=== PATIENT | female | born 1955 | race African-American/Black ===

== ENCOUNTER 2017-09-12 14:39 | Outpatient (CLI) | payer OTHER ==
--- NOTE | 2017-09-13 13:23 | Mammography Report ---
BILATERAL DIGITAL SCREENING MAMMOGRAM with CAD : 09/12/17 14:39:00 CLINICAL: Routine screening. COMPARISON:02/07/16 FINDINGS: The breasts are heterogeneously dense, which may obscure small masses.Bilateral calcifications with benign morphology. No mass, architectural distortion or suspicious calcifications. IMPRESSION: No mammographic evidence of malignancy. BI-RADS CATEGORY: 2 -- Benign RECOMMENDATION: Routine mammographic screening in one year. COMMENT: Patient follow-up letters are generated by our [employer] application.
== END 2017-09-12 14:40 | disposition home or self-care (01) ==
LOC: MAMMO 14:39
PROVIDERS: ATTEND Family Medicine
DX: Z12.31 Encounter for screening mammogram for malignant neoplasm of breast (principal)
CPT/HCPCS: 77067

== ENCOUNTER 2019-10-19 08:01 | Outpatient (CLI) | payer MEDICARE ==
--- NOTE | 2019-10-19 10:47 | Ultrasound Report ---
BILATERAL DIGITAL DIAGNOSTIC MAMMOGRAM WITH CAD -- 10/19/2019 BILATERAL LIMITED BREAST ULTRASOUND INDICATION: Patient presents for evaluation of an area of palpable concern in the left breast. TECHNIQUE: Digital bilateral mammographic imaging was performed. Spot compression views were obtaine d. Limited ultrasound was performed. This examination was interpreted with the benefit of Computer- ded Detection (CAD) analysis. COMPARISON: Prior mammograms 09/12/2017 and 02/07/2016 FINDINGS: Breast Density: The breasts are heterogeneously dense, which may obscure small masses. MAMMOGRAPHIC FINDINGS: Underlying the marker denoting site of palpable concern in the upper inner kala drant of the left breast, anterior to middle depth, there is a lobulated mass with partially circumsc ribed and partially obscured margins measuring up to approximately 3.9 x 3.3 x 2.6 cm. There is an 8 mm asymmetric density seen in the slightly inferior right breast, middle to posterior d epth, best seen on MLO view and likely in the central to lateral breast on the CC view. There are stable calcifications with scattered distribution seen throughout both breasts. ULTRASOUND FINDINGS: Targeted ultrasound evaluation was performed of the area of interest. Left breast: Corresponding with the area of palpable concern in the left breast 11:00 position locate d 7 cm from the nipple, there is a predominantly solid complex cystic and solid lesion measuring up t o 2.4 x 2.6 x 2.5 cm. The margins are partially circumscribed but partially indistinct. Internal vasc ularity is demonstrated within the solid component. Right breast: Targeted ultrasound of the inferior right breast reveals a benign simple cyst in the ri ght breast 8:00 position located 2 cm from the nipple measuring up to 4 mm, and an oval circumscribed hypoechoic mass versus complicated cyst in the right breast 9:00 position located 6 cm from the nipp le measuring up to 6 x 4 x 4 mm. This mass is parallel with no internal vascularity and demonstrating increased through transmission. This likely corresponds with the mammographic finding. IMPRESSION: 1. A predominantly solid complex cystic and solid mass accounts for the area of palpable concern in t he left breast. This is suspicious for malignancy, ultrasound-guided biopsy is recommended. 2. A complicated cyst versus oval circumscribed mass in the right breast is considered probably benig n. Recommend right breast ultrasound in 6 months to ensure stability. Follow up recommendation: Biopsy BI-RADS Category 4: Suspicious for Malignancy. A "normal" or negative report should not discourage follow up or biopsy of a clinically significant f inding. A written summary of these findings will be mailed to the patient. The patient will be entered into a mammography reporting system which will generate a reminder letter for the patient's next appointmen t at the appropriate interval. According to the [employer], yearly mammograms are recommended starting at age 40 and continuing as long as a woman is in good health. Breast MRI is recommended for women with an patrick roximately 20-25% or greater lifetime risk of breast cancer, including women with a strong family his tory of breast or ovarian cancer and women who have been treated for Hodgkin's disease. Signer Name: Marine Nielson MD Signed: 10/19/2019 10:43 AM Workstation Name: [id number]
== END 2019-10-19 08:02 | disposition home or self-care (01) ==
LOC: MAMMO 08:01
PROVIDERS: ATTEND Family Medicine
DX: R92.8 Other abnormal and inconclusive findings on diagnostic imaging of breast (principal)
CPT/HCPCS: 77066

== ENCOUNTER 2019-11-18 08:27 | Outpatient (CLI) | payer MEDICARE ==
--- NOTE | 2019-11-18 10:34 | Mammography Report ---
DIGITAL DIAGNOSTIC MAMMOGRAM WITH CAD, 11/18/2019 INDICATION: -Post clip Lt TECHNIQUE: Digital left mammographic imaging was performed. This examination was interpreted with the benefit of Computer-aided Detection analysis. COMPARISON: 10/19/2019 FINDINGS: Breast Density: The breasts are heterogeneously dense, which may obscure small masses. A U-shaped biopsy clip is now identified within the palpable mass at 8:00. IMPRESSION: Concordant clip placement after ultrasound biopsy. Follow up recommendation: No recall. Post biopsy imaging. A "normal" or negative report should not discourage follow up or biopsy of a clinically significant f inding. A written summary of these findings will be mailed to the patient. The patient will be entered into a mammography reporting system which will generate a reminder letter for the patient's next appointmen t at the appropriate interval. According to the [employer], yearly mammograms are recommended starting at age 40 and continuing as long as a woman is in good health. Breast MRI is recommended for women with an patrick roximately 20-25% or greater lifetime risk of breast cancer, including women with a strong family his tory of breast or ovarian cancer and women who have been treated for Hodgkin's disease. Signer Name: Alvaro Núñez MD Signed: 11/18/2019 10:29 AM Workstation Name: [id number]
--- NOTE | 2019-11-18 11:20 | Ultrasound Report ---
ULTRASOUND-GUIDED NEEDLE CORE BIOPSY LEFT BREAST WITH CLIP PLACEMENT CLINICAL: A palpable 2.6 cm left breast mass at 11:00 7 cm from the nipple. FINDINGS: The procedure was explained to the patient and informed consent was obtained. Ultrasound demonstrated the previously identified mass.. I marked the breast with a felt tip marker and a timeout was called. The skin was prepped with Chloro -Prep and anesthetized with 1% lidocaine. Needle core biopsy was performed through small dermatotomy using ultrasound guidance, 2% lidocaine wi th epinephrine for deep anesthesia and a 14-gauge Achieve biopsy device. 5 cores were obtained and pl aced in formalin. A U-shaped clip was deployed within the mass. The patient tolerated the procedure well and there were no apparent complications. Hemostasis was ach ieved with minimal effort and a sterile dressing was applied. A post procedure mammogram demonstrated concordant clip deployment. She left the department in good c ondition and was given instructions for wound care and follow-up. IMPRESSION: Uncomplicated ultrasound guided needle core biopsy with clip placement left breast. Signer Name: Alvaro Núñez MD Signed: 11/18/2019 11:16 AM Workstation Name: [id number]
== END 2019-11-18 08:28 | disposition home or self-care (01) ==
LOC: SPVWC 08:27
PROVIDERS: ATTEND Family Medicine
DX: N63.22 Unspecified lump in the left breast, upper inner quadrant (principal); R92.0 Mammographic microcalcification found on diagnostic imaging of breast; D05.12 Intraductal carcinoma in situ of left breast; Z17.0 Estrogen receptor positive status [ER+]
CPT/HCPCS: 88305; 88341; 88342

== ENCOUNTER 2020-01-12 09:25 | Outpatient (CLI) | payer MEDICARE ==
--- NOTE | 2020-01-12 11:00 | Ultrasound Report ---
EXAMINATION: Left Complete Breast Ultrasound, 01/12/2020 INDICATION: Abnormal mammogram. Left breast mass. COMPARISON: 12/10/2019, 11/18/2019, 10/19/2019 FINDINGS: Complete sonographic evaluation of all 4 quadrants of the left breast was performed. The p revious the biopsied mass in the T10-11:00 position of the left breast is similar in appearance and l arger, measuring 3.8 x 1.9 x 3.3 cm. On the ultrasound from 10/19/2019, this mass measured 2.6 x 2.5 x 2.4 cm. There are multiple hypoechoic solid subcentimeter lesions along the outer left breast from t he 1:00 through the 4:00 positions ranging from 2 to 5 cm from the nipple. That area of the left radha st was not evaluated on the prior ultrasound. No additional significant abnormality. IMPRESSION: Interval enlargement of the known left breast cancer with additional suspicious nodules throughout th e lateral left breast as above that are concerning for additional sites of malignancy. Follow up recommendation: Surgical consult BI-RADS Category 6: Known Biopsy-Proven Malignancy. Signer Name: Tyler Dewitt MD Signed: 01/12/2020 10:55 AM Workstation Name: [id number]
== END 2020-01-12 09:26 | disposition home or self-care (01) ==
LOC: SPVWC 09:25
PROVIDERS: ATTEND Surgery
DX: C50.912 Malignant neoplasm of unspecified site of left female breast (principal); R92.8 Other abnormal and inconclusive findings on diagnostic imaging of breast

== ENCOUNTER 2020-01-13 07:51 | Outpatient (CLI) | payer MEDICARE ==
--- NOTE | 2020-01-13 09:44 | Ultrasound Report ---
EXAMINATION: Ultrasound-guided left breast biopsy, 01/13/2020 CLINICAL INFORMATION: The patient has a new diagnosis of left breast neoplasm at the 11:00 position, manifested by a palpable complex mass. 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 A 2 site biopsy of left lateral breast masses were requested to determine surgical man agement. COMPARISON: Diagnostic mammogram and ultrasound, 10/19/2019. Left breast biopsy, 11/18/2019. Additional lymph node biopsy, 12/10/2019. Left breast ultrasound, 01/12/2020. FINDINGS: Risks, benefits and indications to the procedure were discussed with the patient including but not limited to bleeding, hematoma, infection, or inadequate tissue sampling. The patient agreed t o proceed with both verbal and written consent. A timeout procedure was performed with 2 patient iden tifiers. An electric solderer was present to assist in communication. All of the patient's questions were a nswered. The left breast was cleansed and prepped in the usual sterile fashion. Lidocaine with and without epi nephrine were injected for local anesthesia at the targeted site at the 1:00 position 2 cm from the n ipple. Under direct ultrasound guidance a total of 3 14-gauge core samples were obtained. A marker cl ip was placed. Biopsy device was removed and hemostasis achieved with manual pressure. A sterile dres sing was applied. The patient tolerated the procedure without difficulty. No complications were encountered. The patien t was given postbiopsy instructions. IMPRESSION: 1. Successful ultrasound-guided left breast biopsy at the 1:00 position. Please note that the patient also underwent ultrasound-guided biopsy at the 4:00 position, which is dictated in a separate report . Signer Name: Mar Carrion MD Signed: 01/13/2020 9:40 AM Workstation Name: [id number]
--- NOTE | 2020-01-13 09:48 | Ultrasound Report ---
EXAMINATION: Ultrasound-guided left breast biopsy, additional lesion, 01/13/2020 CLINICAL INFORMATION: The patient has a new diagnosis of left breast neoplasm manifested by a complex mass at the 11:00 position. This is been previously biopsied with results of DCIS and papillary lesi on. Ultrasound-guided biopsy is done today for further evaluation of additional indeterminate masses in the lateral left breast. COMPARISON: Diagnostic mammogram and ultrasound, 10/19/2019. Ultrasound-guided biopsy, 11/18/2019. Lymp h node biopsy, 12/10/2019. Left breast ultrasound, 01/12/2020. PROCEDURE: Risks, benefits and indications to the procedure were discussed with the patient including bleeding, hematoma formation, infection or inadequate tissue sampling. The patient agreed to proceed with both verbal and written consent. A timeout procedure was performed using 2 patient identifiers. An level vial inspector was present to assist with communication. All the patient's questions were answered. The left lateral breast was cleansed and prepped in the usual sterile fashion. Lidocaine with and wit hout epinephrine were used for local anesthesia. Under direct ultrasound guidance, a total of 3 core samples were obtained using a 14-gauge biopsy device of the lesion at the 4:00 position 5 cm from the nipple. A biopsy clip was deployed. Biopsy device was removed and hemostasis achieved with manual pr essure. A sterile dressing was applied. The patient tolerated procedure without difficulty. No complications were encountered. Postbiopsy ins tructions were given to the patient. IMPRESSION: 1. Successful ultrasound-guided left breast biopsy at the 4:00 position. Please note that patient als o underwent biopsy at the 1:00 position in the left breast. This is dictated in a separate report. Signer Name: Mar Carrion MD Signed: 01/13/2020 9:43 AM Workstation Name: [id number]
--- NOTE | 2020-01-13 09:51 | Mammography Report ---
DIGITAL DIAGNOSTIC MAMMOGRAM WITH CAD, 01/13/2020 INDICATION: Postbiopsy mammogram performed to document clip placement after 2 site ultrasound biopsy . TECHNIQUE: Digital left mammographic imaging was performed. This examination was interpreted with the benefit of Computer-aided Detection analysis. COMPARISON: Ultrasound-guided biopsy, 01/13/2020. Diagnostic mammogram, 12/10/2019 and 11/18/2019. Left br east ultrasound, 01/12/2020. FINDINGS: Breast Density: The breasts are heterogeneously dense, which may obscure small masses. Postbiopsy mammogram confirms satisfactory positioning of new biopsy clips at the 1:00 and 4:00 locat ions. IMPRESSION: Follow up recommendation: No recall. Post biopsy imaging. A "normal" or negative report should not discourage follow up or biopsy of a clinically significant f inding. A written summary of these findings will be mailed to the patient. The patient will be entered into a mammography reporting system which will generate a reminder letter for the patient's next appointmen t at the appropriate interval. According to the [employer], yearly mammograms are recommended starting at age 40 and continuing as long as a woman is in good health. Breast MRI is recommended for women with an patrick roximately 20-25% or greater lifetime risk of breast cancer, including women with a strong family his tory of breast or ovarian cancer and women who have been treated for Hodgkin's disease. Signer Name: Mar Carrion MD Signed: 01/13/2020 9:46 AM Workstation Name: [id number]
== END 2020-01-13 07:52 | disposition home or self-care (01) ==
LOC: SPVWC 07:51
PROVIDERS: ATTEND Surgery
DX: N63.23 Unspecified lump in the left breast, lower outer quadrant (principal); N63.21 Unspecified lump in the left breast, upper outer quadrant; R92.8 Other abnormal and inconclusive findings on diagnostic imaging of breast
CPT/HCPCS: 88305

== ENCOUNTER 2020-02-05 06:06 | Observation (INO) | payer MEDICARE ==
--- NOTE | 2020-02-03 10:02 | Anesthesia Consultation ---
Anesthesia Consult and Med Hx Date of service: 02/05/20 - Airway Anesthetic Teeth Evaluation: Partials (upper and lower) ROM Head & Neck: Adequate Mental/Hyoid Distance: Inadequate Mallampati Class: Class III Intubation Access Assessment: Possibly Difficult (small mouth opening) - Pulmonary Exam CTA: Yes - Cardiac Exam Cardiac Exam: RRR - Pre-Operative Health Status ASA Pre-Surgery Classification: ASA2 Proposed Anesthetic Plan: General Nerve Block: PEC - Pulmonary Hx Smoking: No Hx Respiratory Symptoms: No - Cardiovascular System Hx Hypertension: Yes Hx Heart Attack/AMI: No Hx Percutaneous Transluminal Coronary Angioplasty (PTCA): No - Central Nervous System CVA: No - Gastrointestinal Hx Gastroesophageal Reflux Disease: Yes (mild) - Endocrine Hx Renal Disease: No Hx Liver Disease: No Hx Non-Insulin Dependent Diabetes: Yes Hx Thyroid Disease: No - Other Systems Hx Obesity: No - Additional Comments Anesthesia Medical History Comments: No hx anesthetic complications.
[2020-02-03 10:22] LABS: Basophils # (Auto) 0.1 K/mm3 (0.0-0.1); Basophils % (Auto) 0.8 % (0.0-1.8); Eosinophils # (Auto) 0.1 K/mm3 (0.0-0.4); Eosinophils % (Auto) 1.7 % (0.0-4.3); Hematocrit 40.5 % (30.3-42.9); Hemoglobin 13.5 gm/dl (10.1-14.3); Lymphocytes # (Auto) 2.7 K/mm3 (1.2-5.4); Lymphocytes % (Auto) 36.3 % (13.4-35.0); Mean Corpuscular HGB Conc 33 % (30-34); Mean Corpuscular Volume 91 fl (79-97); Monocytes # (Auto) 0.6 K/mm3 (0.0-0.8); Monocytes % (Auto) 8.2 % (0.0-7.3); Platelet Count 343 K/mm3 (140-440); Red Blood Count 4.45 M/mm3 (3.65-5.03); Red Cell Distribution Width 14.3 % (13.2-15.2)
[2020-02-03 10:35] LABS: Blood Urea Nitrogen 19 mg/dL (7-17); Calcium 8.8 mg/dL (8.4-10.2); Hemolysis Index 2
[2020-02-03 10:36] LABS: BUN/Creatinine Ratio 32
[~2020-02-05 06:06] MED LIST: CELECOXIB 200 MG CAP PO NR; GABAPENTIN 300 MG CAP PO NR; LACTATED RINGERS 1,000 ML IV SCH; MAGNESIUM OXIDE 400 MG TAB PO SCH; MIDAZOLAM 2 MG/2 ML INJ IV NR; ceFAZolin/Water 2 GM/20 ML 2 GM/20 ML SYRINGE IV NR; fentaNYL 100 MCG/2 ML INJ IV PRN
[2020-02-05] MEDS ORDERED: dexAMETHasone 4 MG/ML VIAL ONE (07:13)
[2020-02-05] MEDS ORDERED: LIDOCAINE (1%) 10 MG/1 ML VIAL 20 ML MDV ONE (07:13)
[2020-02-05] MEDS ORDERED: BUPIVACAINE-EPINEPHRINE/PF 0.5%-1:200,000 (30 ML) VIAL INFILTRATI ONE (07:13)
[2020-02-05] MEDS ORDERED: HYDROmorphone 1 MG/1 ML INJ ONE (07:22)
[2020-02-05] MEDS ORDERED: propofoL 200 MG/20 ML VIAL IV ONE (07:22)
[2020-02-05] MEDS ORDERED: LIDOCAINE MPF (2%) 20 MG/1 ML VIAL 5 ML ONE (07:22)
[2020-02-05] MEDS ORDERED: ROCURONIUM 50 MG/5 ML INJ IV ONE (07:22)
[2020-02-05] MEDS ORDERED: SODIUM CHLORIDE P/F VIAL 10 ML 10 ML ONE (07:23)
[2020-02-05] MEDS ORDERED: METHYLENE BLUE 50 MG/10 ML AMP ONE (07:23)
[2020-02-05] MEDS ORDERED: fentaNYL 100 MCG/2 ML INJ IV PRN (07:28)
--- NOTE | 2020-02-05 07:28 | Anesthesia Day of Surgery ---
Anesthesia Day of Surgery - Day of Surgery Patient Examined: Yes Patient H&P Reviewed: Yes Patient is NPO: Yes
[2020-02-05] MEDS ORDERED: PHENYLEPHRINE/NS 1,000 MCG/10 ML SYRINGE (OR USE) IV ONE (10:40)
--- NOTE | 2020-02-05 10:45 | XRay Report ---
Left breast surgical specimen INDICATION: BREAST CANCER. COMPARISON: Diagnostic mammogram from 10/19/2019 IMPRESSION: Left breast lobulated mass contains 3 biopsy clips. Margins appear to be appropriate. F indings were discussed with Dr. Smith this morning. Signer Name: Delfin Meier MD Signed: 02/05/2020 10:41 AM Workstation Name: [id number]
[2020-02-05] MEDS ORDERED: LACTATED RINGERS 1,000 ML ONE (11:09)
[2020-02-05] MEDS ORDERED: GLYCOPYRROLATE 0.4 MG/2 ML INJ ONE (11:09)
[2020-02-05] MEDS ORDERED: NEOSTIGMINE 10MG/10 ML INJ MDV ONE (11:09)
[2020-02-05] MEDS ORDERED: ONDANSETRON 4 MG/2 ML INJ ONE (11:09)
[2020-02-05] MEDS ORDERED: METHYLENE BLUE 50 MG/10 ML AMP IV ONE (11:14)
[2020-02-05] MEDS ORDERED: SODIUM CHLORIDE 0.9% P/F 10 ML VIAL INFILTRATI ONE (11:15)
[2020-02-05] MEDS ORDERED: WATER FOR IRRIG STERILE 1,500 ML BOTTLE IR ONE (11:29)
[2020-02-05] MEDS ORDERED: METOCLOPRAMIDE 10 MG TAB PO PRN (11:47)
[2020-02-05] MEDS ORDERED: diphenhydrAMINE 25 MG CAP PO PRN (11:47)
[2020-02-05] MEDS ORDERED: ACETAMINOPHEN 325 MG TAB PO PRN (11:47)
[2020-02-05] MEDS ORDERED: ONDANSETRON 4 MG/2 ML INJ IV PRN (11:47)
--- NOTE | 2020-02-05 11:47 | Short Stay Summary ---
Short Stay Documentation Date of service: 02/05/20 - History H&P: obtained from office - Allergies and Medications Current Medications: Allergies No Known Allergies Allergy (Verified 01/28/20 12:54) Home Medications Medication Instructions Recorded Confirmed Last Taken Type AtorvaSTATin [Lipitor] 20 mg PO QHS 01/28/20 02/05/20 02/04/20 20:00 History Losartan [Cozaar] 25 mg PO QDAY 01/28/20 02/05/20 02/05/20 05:00 History metFORMIN [Glucophage] 500 mg PO QDAY 01/28/20 02/05/20 02/04/20 09:00 History Active Medications Celecoxib (Celebrex) 200 mg PO PREOP NR Stop: 02/05/20 22:00 Last Admin: 02/05/20 06:50 Dose: 200 mg Documented by: Fentanyl (Sublimaze) 100 mcg IV ONCE PRN PRN Reason: sedation for nerve block Stop: 02/05/20 23:00 Last Admin: 02/05/20 07:15 Dose: 50 mcg Documented by: Fentanyl (Sublimaze) 50 mcg IV Q5MIN PRN PRN Reason: Pain , Severe (7-10) Stop: 02/05/20 22:00 Gabapentin (Gabapentin) 300 mg PO PREOP NR Stop: 02/05/20 22:00 Last Admin: 02/05/20 06:50 Dose: 300 mg Documented by: Cefazolin Sodium (Ancef/Sterile Water 2 Gm/20 Ml) 2 gm in 20 mls @ 80 mls/hr IV PREOP NR; Protocol Stop: 02/05/20 23:59 Lactated Ringer's (Lactated Ringers) 1,000 mls @ 100 mls/hr IV DIRECT TRISTEN Stop: 02/05/20 23:59 Last Admin: 02/05/20 06:50 Dose: 100 mls/hr Documented by: Magnesium Oxide (Mag-Ox) 400 mg PO PREOP TRISTEN Stop: 02/05/20 20:00 Last Admin: 02/05/20 06:50 Dose: 400 mg Documented by: Midazolam HCl (Versed) 2 mg IV PREOP NR Stop: 02/05/20 22:00 Last Admin: 02/05/20 07:15 Dose: 1 mg Documented by: - Brief post op/procedure progress note Date of procedure: 02/05/20 Pre-op diagnosis: Left breast cancer upper inner quadrant Post-op diagnosis: same Procedure: Left total mastectomy with SLNB Anesthesia: GETA Findings: 4 SLNs neg for malignancy; radiograph specimen with 3 clips present Surgeon: KEYSHAWN KAM Estimated blood loss: 50-100ml Pathology: list (left total mastectomy; x4 SLNs) Specimen disposition: to lab Condition: stable - Disposition Condition at discharge: Good Disposition: DC/TX-02 SHRT-TRM GEN HOSP IP Short Stay Discharge Plan Activity: other (no heavy lifting) Diet: regular Wound: keep clean and dry Follow up with: BRIJESH DELVALLE MD [Primary Care Provider] - 7 Days KEYSHAWN KAM MD [Staff Physician] - 7 Days
[2020-02-05] MEDS ORDERED: MORPHINE 2 MG/1 ML INJ IV PRN (11:49)
[2020-02-05] MEDS ORDERED: DEXTROSE 50% IN WATER (25GM) 50 ML SYRINGE IV PRN (11:50)
[2020-02-05] MEDS ORDERED: LACTATED RINGERS 1,000 ML IV SCH (12:00)
--- NOTE | 2020-02-05 12:43 | Post Anesthesia Evaluation ---
- Post Anesthesia Evaluation Patient Participated: Yes Airway Patent: Yes Stable Respiratory Function: Yes Nausea/Vomiting: No Temp > 96.8F: Yes Pain Manageable: Yes Adequeate Hydration: Yes Anesthesia Complications: No
--- NOTE | 2020-02-05 13:30 | Operative Report ---
Operative Report Operative Report: Operative Report: Date of Service: February 05, 2020 Preoperative diagnosis: Left breast cancer of the upper inner quadrant and left breast atypia Postoperative diagnosis: Same Procedure: Left total mastectomy with sentinel lymph node biopsy Surgeon: Anne-Marie Smith M.D. Area Captain: SHARDA Garcia; Sonia Ortiz MD Anesthesia: Gen. 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 Recommendations were to proceed with a left total mastectomy given known left breast carcinoma of upper inner quadrant and addtional pathology findings of atypia and papilloma. She understands to role of possible adjuvant XRT pending final pathology and medical oncology will obtain Oncotype DX for evaluation for adjuvant chemotherapy if indicated. Will proceed with delay plastic surgery. She wished to proceed with the above procedure. Procedure in detail: The patient was taken to the operating room and was placed supine. Gen. anesthesia was administered. The left nipple was injected with radioisotope and 1 cc of methylene blue. Left breast and axilla was prepped and draped in the normal sterile operative fashion. Timeout was performed. Typical mastectomy incision markings were made with left mastectomy incision encompassing known cancer around the 10:00 position. Ultrasound was used as well for incision markings. Attention was taken towards the left breast. A gamma probe was inserted into the axilla to identify the sentinel lymph node location with uptake noted. Skin markings were made to include the area of known cancer-palpable mass at the 10:00 position. A skin incision was made with a 10 blade knife and dissection taken down to the subcutaneous tissues. First began raising of the superior flap to the level of the clavicle superiorly and posteriorly to the pectoralis muscle. Followed by raising of the medial flap to the level of the sternum and posteriorly to the pectoralis muscle. Followed by raising of the lateral flap to the level of the latissimus dorsi muscle and taken down posteriorly. The gamma probe was inserted into the axilla, the axillary fascia was opened and 4 SLNS were identified that were dissected free and sent to pathology. All SLNs sent to pathology with findings negative for malignancy on frozen section. Then proceeded with raising of the inferior flap to the level of the inframammary fold taken posterior to the pectoralis muscle. The mastectomy/breast was removed from the pectoralis muscle without incident. The specimen was appropriately marked and sent to radiology with findings of 3 breast clips present and sent to pathology. Hemostasis was obtained. The chest wall cavity was irrigated. A 19 Scottish DREW drain was placed. The subcutaneous tissues were approximated and close using interrupted 3-0 Vicryl and the skin closed using 4-0 running Monocryl followed by dermabond. She tolerated surgery very well and was awaken from anesthesia without any comp lications and transported to PACU in good condition.
[2020-02-05] MEDS: INSULIN LISPRO 100 UNIT/ML SUB-Q SCH ×3 (15:22→22:43)
[2020-02-05] MEDS: oxyCODONE /ACETAMINOPHEN 5-325MG TAB PO PRN ×2 (18:10→22:29)
[2020-02-05] MEDS: DOCUSATE SODIUM 100 MG CAP PO SCH (22:29)
[2020-02-06] MEDS: oxyCODONE /ACETAMINOPHEN 5-325MG TAB PO PRN (05:21)
[2020-02-06] MEDS: INSULIN LISPRO 100 UNIT/ML SUB-Q SCH (05:23)
--- NOTE | 2020-02-06 07:47 | Progress Note ---
Assessment and Plan This is a 64 year old lady with Stage 0 left breast cancer upper inner quadrant and left breast atypia, POD#1 left total mastectomy with SLNB. 1. Pain in good control, no acute events overnight. 2. Left chest incision healing well, no hematoma; DREW drain output appropriate. 3. DREW drain education. 4. OOB to hallway. 5. D/C planning for today. Subjective Date of service: 02/06/20 Principal diagnosis: Left breast cancer Interval history: POD#1 left total mastectomy with SLNB Objective - Constitutional Vitals: Vital Signs - 12hr 02/05/20 02/05/20 02/06/20 20:00 23:49 05:20 Temperature 98.4 F 98.2 F 98.2 F Pulse Rate 79 69 73 Respiratory 18 18 18 Rate Blood Pressure 110/70 92/52 135/83 O2 Sat by Pulse 91 95 96 Oximetry General appearance: Present: no acute distress - EENT Eyes: PERRL, EOM intact ENT: hearing intact, clear oral mucosa, dentition normal Ears: bilateral: normal - Neck Neck: supple, normal ROM - Respiratory Respiratory effort: normal - Breasts Breasts: other (left chest incision healing well; incision c/d/i; no hematoma; skin well perfused; DREW drain with appropriate output) - Cardiovascular Rhythm: regular Extremities: no ischemia, pulses intact, pulses symmetrical, No edema, normal temperature, normal color, Full ROM - Gastrointestinal General gastrointestinal: Present: soft, non-tender, non-distended Rectal Exam: deferred - Genitourinary Female genitourinary: deferred - Integumentary Integumentary: clear, warm, dry - Musculoskeletal Musculoskeletal: strength equal bilaterally - Neurologic Neurologic: CNII-XII intact, moves all extremities - Psychiatric Psychiatric: appropriate mood/affect, intact judgment & insight, memory intact, cooperative - Labs CBC & Chem 7: 02/03/20 09:47 02/03/20 09:48 Labs: Abnormal lab results 02/05/20 02/05/20 02/05/20 Range/Units 12:12 17:29 22:43 POC Glucose 154 H 133 H 137 H (70-105) Medications & Allergies - Medications Allergies/Adverse Reactions: Allergies No Known Allergies Allergy (Verified 01/28/20 12:54) Home Medications: Home Medications Medication Instructions Recorded Confirmed Last Taken Type AtorvaSTATin [Lipitor] 20 mg PO QHS 01/28/20 02/05/20 02/04/20 20:00 History Losartan [Cozaar] 25 mg PO QDAY 01/28/20 02/05/20 02/05/20 05:00 History metFORMIN [Glucophage] 500 mg PO QDAY 01/28/20 02/05/20 02/04/20 09:00 History Active Medications: Generic Name Dose Route Start Last Admin Trade Name Freq PRN Reason Stop Dose Admin Acetaminophen 650 mg 02/05/20 11:47 Tylenol PO Q6H PRN Pain MILD(1-3)/Fever >100.5/PATTERSON Dextrose 50 ml 02/05/20 11:50 D50w (25gm) Syringe IV Q30MIN PRN Hypoglycemia Protocol Diphenhydramine HCl 25 mg 02/05/20 11:47 Benadryl PO Q8H PRN Itching Docusate Sodium 100 mg 02/05/20 22:00 02/05/20 22:29 Colace PO 100 mg BID TRISTEN Administration Lactated Ringer's 1,000 mls @ 125 mls/hr 02/05/20 12:00 Lactated Ringers IV DIRECT TRISTEN Insulin Human Lispro 0 unit 02/05/20 12:00 02/06/20 05:23 Humalog SUB-Q Not Given Q6HR [facility] Protocol Metoclopramide HCl 10 mg 02/05/20 11:47 Reglan PO Q6H PRN Nausea And Vomiting Morphine Sulfate 2 mg 02/05/20 11:49 Morphine IV Q4H PRN Pain, Moderate (4-6) Ondansetron HCl 4 mg 02/05/20 11:47 Zofran IV Q8H PRN N/V unrelieved by Reglan Oxycodone/Acetaminophen 1 tab 02/05/20 11:47 02/06/20 05:21 Percocet 5/325 PO 1 tab Q6H PRN Administration Pain, Moderate (4-6) Sodium Chloride 10 ml 02/05/20 11:47 Sodium Chloride Flush Syringe 10 Ml IV PRN PRN LINE FLUSH
[2020-02-06] MEDS: DOCUSATE SODIUM 100 MG CAP PO SCH (09:42)
[2020-02-06 13:20] VITALS: BP 110/62
== END 2020-02-06 13:30 | disposition home or self-care (01) ==
LOC: OR 06:06 → OB 11:47
PROVIDERS: ADMIT Surgery; ATTEND Surgery
DX: C50.212 Malignant neoplasm of upper-inner quadrant of left female breast (principal); I10 Essential (primary) hypertension; E11.9 Type 2 diabetes mellitus without complications; K21.9 Gastro-esophageal reflux disease without esophagitis; Z79.84 Long term (current) use of oral hypoglycemic drugs
CPT/HCPCS: 19303; 36415; 38525; 38792; 64450; 76098; 78800; 80048; 82962; 85025; 88307; 88331; 88333; 88342; A9541; G0378; J0690; J1100; J1170; J2250; J2370; J2405; J2704; J2710; J3010; J7120; Q9968; U0003

== ENCOUNTER 2020-04-14 10:34 | Outpatient (CLI) | payer MEDICARE ==
--- NOTE | 2020-04-14 13:48 | Mammography Report ---
DEXA BONE DENSITY SCAN INDICATION: -Aromatase Inhibitor Med, postmenopausal female COMPARISON: None available. LUMBAR SPINE (L1-L4): Bone mineral density (BMD) is 0.853 g/cm2. T-score is -1.8 (standard deviations of Young Adult mean). Z-score is 0.1 (standard deviations of Age Matched mean). LEFT FEMORAL NECK: Bone mineral density (BMD) is 0.581 g/cm2. T-score is -2.4 (standard deviations of Young Adult mean). Z-score is -0.8 (standard deviations of Age Matched mean). IMPRESSION: 1. WHO Classification: Osteopenia. Fracture Risk: Increased. Signer Name: Joshua Paredes MD Signed: 04/14/2020 1:44 PM Workstation Name: [id number]
== END 2020-04-14 10:35 | disposition home or self-care (01) ==
LOC: MAMMO 10:34
PROVIDERS: ATTEND Internal Medicine Hematology & Oncology
DX: C50.912 Malignant neoplasm of unspecified site of left female breast (principal); E11.9 Type 2 diabetes mellitus without complications; I10 Essential (primary) hypertension; Z78.0 Asymptomatic menopausal state
CPT/HCPCS: 77080

== ENCOUNTER 2020-10-20 08:47 | Outpatient (CLI) | payer MEDICARE ==
--- NOTE | 2020-10-20 09:33 | Mammography Report ---
DIGITAL SCREENING MAMMOGRAM WITH CAD, 10/20/2020 CLINICAL INFORMATION / INDICATION: Routine screening mammography. The patient has a personal history of left breast cancer treated with mastectomy. TECHNIQUE: Digital right 2D mammography was obtained in the craniocaudal and mediolateral oblique pr ojections. This examination was interpreted with the benefit of Computer-Aided Detection analysis. COMPARISON: 09/12/2017, 10/19/2019 FINDINGS: Breast Density: The breasts are heterogeneously dense, which may obscure small masses. No dominant mass, suspicious calcifications, or architectural distortion in the right breast. Few coarse right breast calcifications are again noted and have not significantly changed when compar ed to prior mammograms. IMPRESSION: No mammographic evidence of malignancy. Follow up recommendation: Routine yearly BI-RADS Category 2: Benign. A "normal" or negative report should not discourage follow up or biopsy of a clinically significant f inding. A written summary of these findings will be mailed to the patient. The patient will be entered into a mammography reporting system which will generate a reminder letter for the patient's next appointmen t at the appropriate interval. The [employer] recommends yearly mammograms starting at age 40 and continuing as l dionna as a woman is in good health. Breast MRI is recommended for women with an approximate 20-25% or greater lifetime risk of breast cancer, including women with a strong family history of breast or ova kosta cancer or who have been treated for Hodgkin's disease. Signer Name: Mar Carrion MD Signed: 10/20/2020 9:29 AM Workstation Name: [id number]
== END 2020-10-20 08:48 | disposition home or self-care (01) ==
LOC: SPVWC 08:47
PROVIDERS: ATTEND Surgery
DX: R92.1 Mammographic calcification found on diagnostic imaging of breast (principal)

== ENCOUNTER 2020-12-30 16:26 | Observation (INO) | payer MEDICARE ==
[2020-12-30 17:33] LABS: Basophils % (Auto) 0.6 % (0.0-1.8); Eosinophils # (Auto) 0.1 K/mm3 (0.0-0.4); Eosinophils % (Auto) 1.5 % (0.0-4.3); Hematocrit 21.9 % (30.3-42.9); Lymphocytes # (Auto) 2.3 K/mm3 (1.2-5.4); Lymphocytes % (Auto) 29.8 % (13.4-35.0); Mean Corpuscular HGB Conc 32 % (30-34); Mean Corpuscular Volume 94 fl (79-97); Monocytes # (Auto) 0.5 K/mm3 (0.0-0.8); Monocytes % (Auto) 6.9 % (0.0-7.3); Platelet Count 477 K/mm3 (140-440); Red Blood Count 2.34 M/mm3 (3.65-5.03); Red Cell Distribution Width 16.7 % (13.2-15.2)
[2020-12-30 17:43] LABS: INR 0.92 (0.87-1.13)
[2020-12-30 17:44] LABS: Partial Thromboplastin Time 27.8 Sec. (24.2-36.6)
[2020-12-30 17:55] LABS: Alanine Aminotransferase 44 units/L (7-56); Albumin 3.7 g/dL (3.9-5); Blood Urea Nitrogen 13 mg/dL (7-17); Calcium 8.7 mg/dL (8.4-10.2); Hemolysis Index 3
[2020-12-30 17:57] LABS: BUN/Creatinine Ratio 26
[2020-12-30] MEDS ORDERED: SODIUM CHLORIDE 0.9% 500 ML 500 ML IV ONE (21:32)
--- NOTE | 2020-12-30 21:42 | Emergency Department Report ---
ED GI Bleed HPI - General Chief complaint: GI Bleed Stated complaint: ABN LABS Time Seen by Provider: 12/30/20 21:29 Source: patient Mode of arrival: Ambulatory Limitations: No Limitations - History of Present Illness Initial comments: Patient is a 65-year-old [place]er female who is being sent in from her primary care clinic for transfusion. Patient had a hemoglobin of 6.0 on labs yesterday. Patient had reported some GI bleeding over the last several days. Patient is a poor historian even with using a via the [employer] translation line. Patient is is stating over and over that she was sent in to be given blood by her doctor. When asking the patient whether she is having shortness of breath chest pain fatigue or syncope the patient only answers that she is here for blood transfusion. The history of GI bleed is given by the note from the primary care physician. Patient is denying any abdominal pain at this time. - Related Data Home Medications Medication Instructions Recorded Confirmed Last Taken AtorvaSTATin [Lipitor] 20 mg PO QHS 01/28/20 02/05/20 02/04/20 20:00 Losartan [Cozaar] 25 mg PO QDAY 01/28/20 02/05/20 02/05/20 05:00 metFORMIN [Glucophage] 500 mg PO QDAY 01/28/20 02/05/20 02/04/20 09:00 Previous Rx's Medication Instructions Recorded Last Taken Type oxyCODONE /ACETAMINOPHEN [Percocet 1 tab PO Q6HR PRN #25 tablet 02/06/20 Unknown Rx 5/325] Allergies Allergy/AdvReac Type Severity Reaction Status Date / Time No Known Allergies Allergy Verified 01/28/20 12:54 ED Review of Systems ROS: Stated complaint: ABN LABS Other details as noted in HPI Comment: All other systems reviewed and negative ED Past Medical Hx - Past Medical History Previous Medical History?: Yes Hx Hypertension: Yes Hx Heart Attack/AMI: No Hx Diabetes: Yes (LAST A1C 7.4; ON PO MED) Hx Liver Disease: No Hx Renal Disease: No Hx HIV: No - Social History Smoking Status: Never Smoker - Medications Home Medications: Home Medications Medication Instructions Recorded Confirmed Last Taken Type AtorvaSTATin [Lipitor] 20 mg PO QHS 01/28/20 02/05/20 02/04/20 20:00 History Losartan [Cozaar] 25 mg PO QDAY 01/28/20 02/05/20 02/05/20 05:00 History metFORMIN [Glucophage] 500 mg PO QDAY 01/28/20 02/05/20 02/04/20 09:00 History oxyCODONE /ACETAMINOPHEN [Percocet 1 tab PO Q6HR PRN #25 tablet 02/06/20 Unknown Rx 5/325] ED Physical Exam - General Limitations: No Limitations General appearance: alert, in no apparent distress - Head Head exam: Present: atraumatic, normocephalic - Eye Eye exam: Present: normal appearance - ENT ENT exam: Present: mucous membranes moist - Neck Neck exam: Present: normal inspection - Respiratory Respiratory exam: Present: normal lung sounds bilaterally. Absent: respiratory distress, wheezes, rales, rhonchi - Cardiovascular Cardiovascular Exam: Present: regular rate, normal rhythm, normal heart sounds. Absent: systolic murmur, diastolic murmur, rubs, gallop - GI/Abdominal GI/Abdominal exam: Present: soft, normal bowel sounds. Absent: distended, tenderness, guarding, rebound - Extremities Exam Extremities exam: Present: normal inspection - Back Exam Back exam: Present: normal inspection - Neurological Exam Neurological exam: Present: alert, oriented X3 - Psychiatric Psychiatric exam: Present: normal affect, normal mood - Skin Skin exam: Present: warm, dry, intact, normal color. Absent: rash ED Course Vital Signs 12/30/20 16:57 Temperature 99.9 F H Pulse Rate 82 Respiratory 18 Rate Blood Pressure 135/71 [Right] O2 Sat by Pulse 99 Oximetry ED Medical Decision Making - Lab Data Result diagrams: 12/30/20 17:09 12/30/20 17:09 Lab Results 12/30/20 12/30/20 12/30/20 Range/Units 17:00 17:09 17:09 WBC 7.8 (4.5-11.0) K/mm3 RBC 2.34 L (3.65-5.03) M/mm3 Hgb 7.0 L (10.1-14.3) gm/dl Hct 21.9 L (30.3-42.9) % MCV 94 (79-97) fl MCH 30 (28-32) pg MCHC 32 (30-34) % RDW 16.7 H (13.2-15.2) % Plt Count 477 H (140-440) K/mm3 Lymph % (Auto) 29.8 (13.4-35.0) % [place] % (Auto) 6.9 (0.0-7.3) % Eos % (Auto) 1.5 (0.0-4.3) % Baso % (Auto) 0.6 (0.0-1.8) % Lymph # (Auto) 2.3 (1.2-5.4) K/mm3 [place] # (Auto) 0.5 (0.0-0.8) K/mm3 Eos # (Auto) 0.1 (0.0-0.4) K/mm3 Baso # (Auto) 0.0 (0.0-0.1) K/mm3 Seg Neutrophils % 61.2 (40.0-70.0) % Seg Neutrophils # 4.7 (1.8-7.7) K/mm3 PT 13.0 (12.2-14.9) Sec. INR 0.92 (0.87-1.13) APTT 27.8 (24.2-36.6) Sec. Sodium (137-145) mmol/L Potassium (3.6-5.0) mmol/L Chloride (98-107) mmol/L Carbon Dioxide (22-30) mmol/L Anion Gap mmol/L BUN (7-17) mg/dL Creatinine (0.6-1.2) mg/dL Estimated GFR ml/min BUN/Creatinine Ratio % Glucose (65-100) mg/dL Calcium (8.4-10.2) mg/dL Total Bilirubin (0.1-1.2) mg/dL AST (5-40) units/L ALT (7-56) units/L Alkaline Phosphatase (35-129) units/L Total Protein (6.3-8.2) g/dL Albumin (3.9-5) g/dL Albumin/Globulin Ratio % Lipase (13-60) units/L Blood Type A POSITIVE Antibody Screen Negative Crossmatch See Detail 12/30/20 Range/Units 17:09 WBC (4.5-11.0) K/mm3 RBC (3.65-5.03) M/mm3 Hgb (10.1-14.3) gm/dl Hct (30.3-42.9) % MCV (79-97) fl MCH (28-32) pg MCHC (30-34) % RDW (13.2-15.2) % Plt Count (140-440) K/mm3 Lymph % (Auto) (13.4-35.0) % [place] % (Auto) (0.0-7.3) % Eos % (Auto) (0.0-4.3) % Baso % (Auto) (0.0-1.8) % Lymph # (Auto) (1.2-5.4) K/mm3 [place] # (Auto) (0.0-0.8) K/mm3 Eos # (Auto) (0.0-0.4) K/mm3 Baso # (Auto) (0.0-0.1) K/mm3 Seg Neutrophils % (40.0-70.0) % Seg Neutrophils # (1.8-7.7) K/mm3 PT (12.2-14.9) Sec. INR (0.87-1.13) APTT (24.2-36.6) Sec. Sodium 139 (137-145) mmol/L Potassium 3.9 (3.6-5.0) mmol/L Chloride 106.2 (98-107) mmol/L Carbon Dioxide 22 (22-30) mmol/L Anion Gap 15 mmol/L BUN 13 (7-17) mg/dL Creatinine 0.5 L (0.6-1.2) mg/dL Estimated GFR > 60 ml/min BUN/Creatinine Ratio 26 % Glucose 113 H (65-100) mg/dL Calcium 8.7 (8.4-10.2) mg/dL Total Bilirubin 0.30 (0.1-1.2) mg/dL AST 25 (5-40) units/L ALT 44 (7-56) units/L Alkaline Phosphatase 92 (35-129) units/L Total Protein 6.9 (6.3-8.2) g/dL Albumin 3.7 L (3.9-5) g/dL Albumin/Globulin Ratio 1.2 % Lipase 56 (13-60) units/L Blood Type Antibody Screen Crossmatch - Medical Decision Making Patient is a 65-year-old [place] female who is a poor historian is presenting with low hemoglobin. Note from her physician states that she has a GI bleed however she is guaiac negative here in the emergency department. Patient is has a low-grade temp at 99.9. States no pain on physical exam palpation of the abdomen but hospitalist have requested CT be done. Patient's MCV was actually normal which goes against a blood loss anemia. Iron studies will be done in place by hospitalist team. Patient be admitted for observation. Critical care attestation.: If time is entered above; I have spent that time in minutes in the direct care of this critically ill patient, excluding procedure time. ED Disposition Clinical Impression: Anemia Disposition: DC09 OP ADMIT IP TO THIS HOSP Is pt being admited?: Yes Does the pt Need Aspirin: No Condition: Stable Time of Disposition: 21:44
--- NOTE | 2020-12-30 21:55 | History and Physical Report ---
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 Patient had a hemoglobin of 6.0 on labs yesterday. Patient had reported some GI bleeding over the last several days. Patient is a poor historian even with using a via the [employer] translation line. Patient is is stating over and over that she was sent in to be given blood by her doctor. When asking the patient whether she is having shortness of breath chest pain fatigue or syncope the patient only answers that she is here for blood transfusion. The history of GI bleed is given by the note from the primary care physician. Patient is denying any abdominal pain at this time. ED work-up WBC 7.8, hemoglobin 7.0 hematocrit 21.9, platelets 477, creatinine 0.5 serum glucose 113 calcium 8.7 albumin 3.7 lipase 56. Patient seen at bedside alert and oriented x3. Patient denies headache and weakness. Patient stated that she had a headache and weakness yesterday but not today. I reviewed the medication record, vital signs, and the history and physical. Patient has known low H&H 7.0 on admission. Per patient record from her primary care physician her h/h head clinic in the office was below 7. We will admit patient on observation and will give 1 unit of packed red blood cells. Possible discharge tomorrow if patient is stable. Past History Past Medical History: diabetes, hypertension, hyperlipidemia Past Surgical History: No surgical history Social history: no significant social history Family history: no significant family history Medications and Allergies Allergies Allergy/AdvReac Type Severity Reaction Status Date / Time No Known Allergies Allergy Verified 01/28/20 12:54 Home Medications Medication Instructions Recorded Confirmed Last Taken Type AtorvaSTATin [Lipitor] 20 mg PO QHS 01/28/20 02/05/20 02/04/20 20:00 History Losartan [Cozaar] 25 mg PO QDAY 01/28/20 02/05/20 02/05/20 05:00 History metFORMIN [Glucophage] 500 mg PO QDAY 01/28/20 02/05/20 02/04/20 09:00 History oxyCODONE /ACETAMINOPHEN [Percocet 1 tab PO Q6HR PRN #25 tablet 02/06/20 Unknown Rx 5/325] Review of Systems Ears, nose, mouth and throat: no epistaxis Breasts: no swelling, no mass Cardiovascular: high blood pressure Respiratory: no congestion, no wheezing Gastrointestinal: no abdominal pain, no melena Rectal: no hemorrhoids Musculoskeletal: muscle weakness Integumentary: no rash, no pruritis, no redness Neurological: weakness, no head injury Hematologic/Lymphatic: no easy bruising, no easy bleeding Allergic/Immunologic: no urticaria Exam - Constitutional Vitals: Temp Pulse Resp BP Pulse Ox 99.9 F H 82 18 135/71 99 12/30/20 16:57 12/30/20 16:57 12/30/20 16:57 12/30/20 16:57 12/30/20 16:57 General appearance: Present: mild distress, well-nourished - EENT Eyes: Present: PERRL ENT: hearing intact, clear oral mucosa - Neck Neck: Present: supple, normal ROM - Respiratory Respiratory effort: normal Respiratory: bilateral: CTA - Cardiovascular Heart Sounds: Present: S1 & S2. Absent: rub, click - Extremities Extremities: pulses symmetrical, No edema Peripheral Pulses: within normal limits - Abdominal General gastrointestinal: Present: soft, non-tender, non-distended, normal bowel sounds Female genitourinary: Present: normal - Integumentary Integumentary: Present: clear, warm, dry - Musculoskeletal Musculoskeletal: gait normal, strength equal bilaterally - Psychiatric Psychiatric: appropriate mood/affect, intact judgment & insight - Neurologic Neurologic: CNII-XII intact, moves all extremities - Allied Health Allied health notes reviewed: nursing Results - Labs CBC & Chem 7: 12/30/20 17:09 12/30/20 17:09 Labs: Abnormal lab results 12/30/20 12/30/20 12/30/20 Range/Units 17:00 17:09 17:09 RBC 2.34 L (3.65-5.03) M/mm3 Hgb 7.0 L (10.1-14.3) gm/dl Hct 21.9 L (30.3-42.9) % RDW 16.7 H (13.2-15.2) % Plt Count 477 H (140-440) K/mm3 Creatinine 0.5 L (0.6-1.2) mg/dL Glucose 113 H (65-100) mg/dL Albumin 3.7 L (3.9-5) g/dL Crossmatch See Detail Assessment and Plan - Patient Problems (1) Anemia Current Visit: No Status: Inactive Plan to address problem: Likely 2/2 to Iron deficiency Patient sent to ED for blood transfusion by primary care physician due low H&H less than 7 On admission H&H -7.0. Guaiac stool negative Transfuse 1 unit packed red blood cells. Check iron, folate and vitamin B-12 levels Start iron and multivitamin supplement (2) Essential (primary) hypertension Current Visit: No Status: Acute Plan to address problem: History of hypertension Monitor blood pressure Resume home losartan. As needed hydralazine (3) Hyperlipidemia Current Visit: No Status: Acute Plan to address problem: Resume home statin (4) Diabetes Current Visit: No Status: Acute Plan to address problem: Monitor blood sugar sliding scale protocol hemoglobin A1c-6.9 Will resume Metformin at discharge (5) DVT prophylaxis Current Visit: No Status: Acute Plan to address problem: SCD will hold off on anticoagulant patient is anemic
[2020-12-30] MEDS ORDERED: SENNOSIDES 8.6 MG TAB PO PRN (22:00)
[2020-12-30] MEDS ORDERED: METOCLOPRAMIDE 10 MG/2 ML INJ IV PRN (22:00)
[2020-12-30] MEDS ORDERED: MAGNESIUM HYDROXIDE (MOM) ORAL LIQD UDC PO PRN (22:00)
[2020-12-30] MEDS ORDERED: ONDANSETRON 4 MG/2 ML INJ IV PRN (22:00)
[2020-12-30] MEDS ORDERED: ALUM-MAG HYDROXIDE-SIMETHICONE 200-200-20MG/5ML ORAL LIQD 30 ML PO PRN (22:00)
[2020-12-30] MEDS ORDERED: ACETAMINOPHEN 325 MG TAB PO PRN (22:00)
[2020-12-30] MEDS ORDERED: FERROUS SULFATE 325 MG TAB PO ONE (22:02)
[2020-12-30] MEDS ORDERED: hydrALAZINE 20 MG/1 ML INJ IV PRN (22:05)
--- NOTE | 2020-12-30 23:51 | Cat Scan Report ---
CT ABDOMEN AND PELVIS WITH IV CONTRAST INDICATION: low HGB, low grade fever. Abdominal pain COMPARISON: None available. TECHNIQUE: Axial CT images were obtained through the abdomen and pelvis after 100 mL IV contrast. All CT scans a t this location are performed using CT dose reduction for ALARA by means of automated exposure contro l. The exam is slightly limited secondary to respiratory motion artifact FINDINGS -- ABDOMEN: Lung Bases: No acute abnormality. Liver: Normal. Gallbladder: Grossly unremarkable but motion artifact limits evaluation. Bile Ducts: Normal. Pancreas: Normal. Spleen: Normal. Adrenals: Normal. Right Kidney and Proximal Ureter: Normal. Left Kidney and Proximal Ureter: Normal. Stomach and Bowel: Normal. Lymph Nodes: No significant adenopathy. Aorta: Scattered atherosclerotic calcification. IVC: Normal. Additional Findings: None. FINDINGS -- PELVIS: Urinary Bladder and Distal Ureters: Normal. Reproductive Organs: No acute abnormality. Appendix: Normal. Bowel: No acute abnormality. Sigmoid diverticulosis but no diverticulitis Free Fluid: None. Lymph Nodes: No significant adenopathy. Additional Findings: None. Skeletal System: No acute abnormality. IMPRESSION: 1. No acute process in the abdomen or pelvis. Colonic diverticulosis. Signer Name: Jaydon Jones MD Signed: 12/30/2020 11:47 PM Workstation Name: [id number]
[2020-12-31] MEDS ORDERED: SODIUM CHLORIDE 0.9% 500 ML 500 ML ONE (00:38)
[2020-12-31] MEDS: INSULIN LISPRO 100 UNIT/ML SUB-Q SCH ×2 (00:51→10:48)
[2020-12-31 01:42] LABS: Iron 30 ug/dL (37-170); Total Iron Binding Capacity 394 mcg/dL (250-450)
[2020-12-31 02:06] LABS: % Iron Saturation 7.46 %
[2020-12-31 06:33] LABS: Basophils # (Auto) 0.1 K/mm3 (0.0-0.1); Eosinophils # (Auto) 0.1 K/mm3 (0.0-0.4); Hematocrit 24.6 % (30.3-42.9); Hemoglobin 8.3 gm/dl (10.1-14.3); Lymphocytes # (Auto) 2.8 K/mm3 (1.2-5.4); Lymphocytes % (Auto) 40.2 % (13.4-35.0); Mean Corpuscular HGB Conc 34 % (30-34); Mean Corpuscular Volume 90 fl (79-97); Monocytes # (Auto) 0.5 K/mm3 (0.0-0.8); Monocytes % (Auto) 7.5 % (0.0-7.3); Platelet Count 388 K/mm3 (140-440); Red Blood Count 2.74 M/mm3 (3.65-5.03); Red Cell Distribution Width 17.8 % (13.2-15.2)
[2020-12-31 07:08] LABS: Alanine Aminotransferase 37 units/L (7-56); Albumin 3.5 g/dL (3.9-5); Blood Urea Nitrogen 9 mg/dL (7-17); Calcium 8.6 mg/dL (8.4-10.2); Hemolysis Index 6
[2020-12-31 07:11] LABS: BUN/Creatinine Ratio 18
[2020-12-31] MEDS ORDERED: LOSARTAN 25 MG TAB PO SCH (10:00)
[2020-12-31] MEDS ORDERED: MULTIVITAMINS ,THERAPEUTIC TAB PO SCH (10:00)
[2020-12-31 12:51] VITALS: BP 108/64
--- NOTE | 2020-12-31 15:06 | Discharge Summary ---
Providers - Providers Date of Admission: 12/30/20 21:45 Date of discharge: 12/31/20 Attending physician: LIZETT MORRIS [facility] Condition: Stable Pertinent studies: CT abdomen pelvis: No acute intra-abdominal pathology Hospital course: Patient is a 65-year-old [place] female who is being sent in from her primary care clinic for blood transfusion. Patient had a hemoglobin of 6.0 on labs and had reported some GI bleeding over the last several days. Patient is a poor historian even with using a via the [employer] translation line. ED work-up WBC 7.8, hemoglobin 7.0 hematocrit 21.9, platelets 477, creatinine 0.5 serum glucose 113 calcium 8.7 albumin 3.7 lipase 56. Patient seen at bedside alert and oriented x3. Patient denies headache, syncope/lightheadedness, chest pain and weakness. Patient was transfused 1 unit of packed RBC. Her repeat hemoglobin was 8.3. Her stool guaiac test was negative. CT abdomen pelvis showed no acute pathology. Her vitamin B12 and folic acid was normal. Patient was instructed to follow-up with her primary care physician for further outpatient work-up for her anemia. Patient verbalized understanding and she was discharged home in stable condition with outpatient follow-up. Disposition: DC TO HOME OR SELFCARE Final Discharge Diagnosis (Prints w/discharge instructions): Normocytic anemia, likely due to GI loss versus iron deficiency. diabetes mellitus type 2, hemoglobin A1c 6.9. Hypertension. Hyperlipidemia Core Measure Documentation - Palliative Care Palliative Care/ Comfort Measures: Not Applicable - Core Measures Any of the following diagnoses?: none Exam - Physical Exam Narrative exam: General appearance: Present: mild distress, well-nourished - EENT Eyes: Present: PERRL ENT: hearing intact, clear oral mucosa - Neck Neck: Present: supple, normal ROM - Respiratory Respiratory effort: normal Respiratory: bilateral: CTA - Cardiovascular Heart Sounds: Present: S1 & S2. Absent: rub, click - Extremities Extremities: pulses symmetrical, No edema Peripheral Pulses: within normal limits - Abdominal General gastrointestinal: Present: soft, non-tender, non-distended, normal bowel sounds Female genitourinary: Present: normal - Integumentary Integumentary: Present: clear, warm, dry - Musculoskeletal Musculoskeletal: gait normal, strength equal bilaterally - Psychiatric Psychiatric: appropriate mood/affect, intact judgment & insight - Neurologic Neurologic: CNII-XII intact, moves all extremities - Allied Health Allied health notes reviewed: nursing - Constitutional Vitals: Temp Pulse Resp BP Pulse Ox 98.5 F 67 20 108/64 97 12/31/20 12:03 12/31/20 12:03 12/31/20 12:03 12/31/20 12:03 12/31/20 12:03 Plan Activity: advance as tolerated Weight Bearing Status: Weight Bear as Tolerated Diet: diabetic Additional Instructions: Repeat CBC in 1 week. Follow-up with PCP for further outpatient care. Follow-up with GI for any possible endoscopy as outpatient in 2 weeks Follow up with: BRANDON SANTIZO MD [Primary Care Provider] - 7 Days VIK BARNES MD [Staff Physician] - 7 Days Forms: Accompanied Note Prescriptions: Ferrous Gluconate [Fergon 325 MG tab] 325 mg PO QDAY #30 tablet
[2020-12-31] MEDS ORDERED: INSULIN LISPRO 100 UNIT/ML SUB-Q SCH (16:30)
== END 2020-12-31 17:35 | disposition home or self-care (01) ==
LOC: ED 16:26 → 3A 21:45
PROVIDERS: ADMIT Internal Medicine Geriatric Medicine; ATTEND Internal Medicine
DX: D64.9 Anemia, unspecified (principal); I10 Essential (primary) hypertension; E11.9 Type 2 diabetes mellitus without complications; E78.2 Mixed hyperlipidemia; R10.9 Unspecified abdominal pain; Z79.84 Long term (current) use of oral hypoglycemic drugs
CPT/HCPCS: 36415; 36430; 74177; 80053; 82607; 82747; 82962; 83036; 83550; 83690; 85025; 85610; 85730; 86850; 86900; 86901; 86920; 99285; A9270; G0378; J7040; P9016; Q9967

== ENCOUNTER 2021-07-14 07:36 | Outpatient (CLI) | payer MEDICARE ==
[2021-07-14 08:29] LABS: Blood Urea Nitrogen 16 mg/dL (7-17)
--- NOTE | 2021-07-17 08:10 | Cat Scan Report ---
CT CHEST, ABDOMEN, AND PELVIS WITH IV CONTRAST INDICATION / CLINICAL INFORMATION: BREAST CANCER omni 300 100 ML. TECHNIQUE: Axial CT images were obtained through the chest, abdomen, and pelvis after 100 cc Omni [address] scans at this location are performed using CT dose reduction for ALARA by means of automate d exposure control. COMPARISON: CT abdomen pelvis 12/30/2020 FINDINGS: HEART: No significant abnormality. THORACIC AORTA: No significant abnormality. MEDIASTINUM and JOLLY: No significant abnormality. LUNGS: No acute air space or interstitial disease. Calcified right upper and left lower lobe granulo mas PLEURA: No significant pleural effusion. No pneumothorax. ADDITIONAL CHEST FINDINGS: Previous left mastectomy. LIVER: No significant abnormality. GALLBLADDER: No significant abnormality. BILE DUCTS: No significant abnormality. PANCREAS: No significant abnormality. SPLEEN: No significant abnormality. ADRENALS: No significant abnormality. RIGHT KIDNEY and URETER: No significant abnormality. LEFT KIDNEY and URETER: No significant abnormality. STOMACH and SMALL BOWEL: No significant abnormality. COLON: No significant abnormality. APPENDIX: Normal PERITONEUM: No free fluid. No free air. No fluid collection. LYMPH NODES: No significant adenopathy. AORTA and ARTERIES: No significant abnormality. IVC and VEINS: No significant abnormality. URINARY BLADDER: No significant abnormality. REPRODUCTIVE ORGANS: No significant abnormality. ADDITIONAL FINDINGS: None. SKELETAL SYSTEM: Moderate degenerative changes of lumbar spine. IMPRESSION: 1. No CT evidence for intrathoracic, abdominal, pelvic or skeletal metastases Signer Name: Nehemiah Soto MD Signed: 07/14/2021 12:45 PM Workstation Name: [id number]
== END 2021-07-14 07:37 | disposition home or self-care (01) ==
LOC: CT 07:36
PROVIDERS: ATTEND Internal Medicine Hematology & Oncology
DX: C50.912 Malignant neoplasm of unspecified site of left female breast (principal); D05.12 Intraductal carcinoma in situ of left breast; E11.9 Type 2 diabetes mellitus without complications; I10 Essential (primary) hypertension; M85.80 Other specified disorders of bone density and structure, unspecified site
CPT/HCPCS: 36415; 71260; 74177; 82565; 84520; Q9967

== ENCOUNTER 2021-10-24 10:27 | Outpatient (CLI) | payer MEDICARE ==
--- NOTE | 2021-10-24 16:38 | Mammography Report ---
DIGITAL SCREENING MAMMOGRAM WITH CAD, 10/24/2021 CLINICAL INFORMATION / INDICATION: Routine screening TECHNIQUE: Digital right 2D mammography was obtained in the craniocaudal and mediolateral oblique pr ojections. This examination was interpreted with the benefit of Computer-Aided Detection analysis. COMPARISON: 10/20/2020 FINDINGS: Breast Density: The breasts are heterogeneously dense, which may obscure small masses. No dominant mass, suspicious calcifications, or architectural distortion in the right breast. Benign-appearing calcifications are again noted. IMPRESSION: No mammographic evidence of malignancy. Follow up recommendation: Routine yearly BI-RADS Category 2: BENIGN. A "normal" or negative report should not discourage follow up or biopsy of a clinically significant f inding. A written summary of these findings will be mailed to the patient. The patient will be entered into a mammography reporting system which will generate a reminder letter for the patient's next appointmen t at the appropriate interval. The [employer] recommends yearly mammograms starting at age 40 and continuing as l dionna as a woman is in good health. Breast MRI is recommended for women with an approximate 20-25% or greater lifetime risk of breast cancer, including women with a strong family history of breast or ova kosta cancer or who have been treated for Hodgkin's disease. Signer Name: Joshua Paredes MD Signed: 10/24/2021 4:34 PM Workstation Name: [email or web address]
== END 2021-10-24 10:28 | disposition home or self-care (01) ==
LOC: SPVWC 10:27 → MAMMO 10:27 → SPVWC 10:28
PROVIDERS: ATTEND Internal Medicine Hematology & Oncology
DX: Z12.31 Encounter for screening mammogram for malignant neoplasm of breast (principal)